=== PATIENT | female | born 1980 | race Caucasian/White ===

== ENCOUNTER 2021-06-29 14:45 | Emergency (ER) | payer SELFPAY ==
[2021-06-29 15:34] VITALS: BP 150/92
[2021-06-29 16:39] LABS: Alanine Aminotransferase 19 units/L (7-56); Albumin 4.8 g/dL (3.9-5); Blood Urea Nitrogen 10 mg/dL (7-17); Calcium 9.8 mg/dL (8.4-10.2); Hemolysis Index 3
[2021-06-29 16:40] LABS: BUN/Creatinine Ratio 14
[2021-06-29 16:43] LABS: Basophils % (Auto) 0.7 % (0.0-1.8); Eosinophils # (Auto) 0.1 K/mm3 (0.0-0.4); Eosinophils % (Auto) 1.3 % (0.0-4.3); Hematocrit 37.9 % (30.3-42.9); Hemoglobin 12.5 gm/dl (10.1-14.3); Lymphocytes # (Auto) 1.8 K/mm3 (1.2-5.4); Lymphocytes % (Auto) 33.9 % (13.4-35.0); Mean Corpuscular HGB Conc 33 % (30-34); Mean Corpuscular Volume 86 fl (79-97); Monocytes # (Auto) 0.3 K/mm3 (0.0-0.8); Monocytes % (Auto) 4.7 % (0.0-7.3); Red Blood Count 4.43 M/mm3 (3.65-5.03); Red Cell Distribution Width 14.2 % (13.2-15.2)
[2021-06-29] MEDS ORDERED: ONDANSETRON 4 MG ODT TAB PO ONE (16:46)
[2021-06-29] MEDS ORDERED: MECLIZINE 25 MG TAB PO ONE (16:46)
--- NOTE | 2021-06-29 16:46 | Emergency Department Report ---
ED Dizziness HPI - General Chief Complaint: Dizziness Stated Complaint: DIZZY/WEAKNESS Source: patient Mode of arrival: Stretcher Limitations: Other - History of Present Illness Initial Comments: Patient is a 40-year-old female she comes to the emergency room after experiencing dizziness today. She states that she has had this in the past. It is worse with movement. She denies nausea vomiting or diarrhea. She denies fever or chills. Denies chest pain or cough. Denies palpitations. Patient denies any trauma. Patient is ambulatory to the ER. She has normal vital signs. She is otherwise healthy. Complaint: dizziness Timing: sudden onset Description: "room spinning" History of Same: Yes History of Trauma: No Severity: mild Improves With: remaining still Worsens With: movement Associated Symptoms: denies other symptoms. denies: ataxia, chest pain, confusion, cough, diaphoresis, fever/chills, loss of appetite, malaise, rash, seizure, shortness of breath, syncope, weakness - Related Data Previous Rx's Medication Instructions Recorded Last Taken Type Cetirizine HCl [ZyrTEC] 10 mg PO DAILY #30 capsule 06/29/21 Unknown Rx Ibuprofen [Motrin] 800 mg PO Q8HR PRN #30 tablet 06/29/21 Unknown Rx Meclizine [Antivert] 12.5 mg PO Q8H PRN #20 06/29/21 Unknown Rx Allergies Allergy/AdvReac Type Severity Reaction Status Date / Time No Known Allergies Allergy Verified 01/12/16 17:05 ED Review of Systems ROS: Stated complaint: DIZZY/WEAKNESS Other details as noted in HPI Comment: All other systems reviewed and negative ED Past Medical Hx - Past Medical History Previous Medical History?: No Hx Hypertension: No Hx Congestive Heart Failure: No Hx Diabetes: No Hx Deep Vein Thrombosis: No Hx Renal Disease: No Hx Sickle Cell Disease: No Hx Seizures: No Hx Asthma: No Hx COPD: No Hx HIV: No - Surgical History Past Surgical History?: Yes - Family History Family history: no significant - Social History Smoking Status: Never Smoker Substance Use Type: Alcohol - Medications Home Medications: Home Medications Medication Instructions Recorded Confirmed Last Taken Type Cetirizine HCl [ZyrTEC] 10 mg PO DAILY #30 capsule 06/29/21 Unknown Rx Ibuprofen [Motrin] 800 mg PO Q8HR PRN #30 tablet 06/29/21 Unknown Rx Meclizine [Antivert] 12.5 mg PO Q8H PRN #20 06/29/21 Unknown Rx ED Physical Exam - General Limitations: Other General appearance: alert, in no apparent distress - Head Head exam: Present: atraumatic, normocephalic, other - Eye Eye exam: Present: normal appearance - ENT ENT exam: Present: mucous membranes moist - Neck Neck exam: Present: normal inspection - Respiratory Respiratory exam: Present: normal lung sounds bilaterally. Absent: respiratory distress - Cardiovascular Cardiovascular Exam: Present: regular rate, normal rhythm. Absent: systolic murmur, diastolic murmur, rubs, gallop - GI/Abdominal GI/Abdominal exam: Present: soft, normal bowel sounds - Extremities Exam Extremities exam: Present: normal inspection - Back Exam Back exam: Present: normal inspection - Neurological Exam Neurological exam: Present: alert, oriented X3 - Psychiatric Psychiatric exam: Present: normal affect, normal mood - Skin Skin exam: Present: warm, dry, intact, normal color. Absent: rash ED Course Vital Signs 06/29/21 15:33 Temperature 98.4 F Pulse Rate 82 Respiratory 16 Rate Blood Pressure 150/92 [Left] O2 Sat by Pulse 98 Oximetry ED Medical Decision Making - Lab Data Result diagrams: 06/29/21 15:54 06/29/21 15:54 - Medical Decision Making Vital Signs 06/29/21 15:33 Temperature 98.4 F Pulse Rate 82 Respiratory 16 Rate Blood Pressure 150/92 [Left] O2 Sat by Pulse 98 Oximetry Labs 06/29/21 06/29/21 15:54 15:54 WBC 5.4 RBC 4.43 Hgb 12.5 Hct 37.9 MCV 86 MCH 28 MCHC 33 RDW 14.2 Lymph % (Auto) 33.9 Granite % (Auto) 4.7 Eos % (Auto) 1.3 Baso % (Auto) 0.7 Lymph # (Auto) 1.8 Granite # (Auto) 0.3 Eos # (Auto) 0.1 Baso # (Auto) 0.0 Seg Neutrophils % 59.4 Seg Neutrophils # 3.2 Sodium 135 L Potassium 3.8 Chloride 100.1 Carbon Dioxide 23 Anion Gap 16 BUN 10 Creatinine 0.7 Estimated GFR > 60 BUN/Creatinine Ratio 14 Glucose 102 H Calcium 9.8 Total Bilirubin 0.20 AST 16 ALT 19 Alkaline Phosphatase 48 Total Protein 6.9 Albumin 4.8 Albumin/Globulin Ratio 2.3 Vital signs normal. Labs noted. I am able to replicate the vertigo with rapid head movement. Patient gets dizzy with right side or left side rapid head turns. Patient states that she has had this in the past and was told that she had vertigo by a nursing friend of hers. She has never had to be treated. Patient is otherwise healthy. I have given the patient Zyrtec Antivert and Motrin. This completely relieved her symptoms. Patient being discharged home with discharge plan of care including diet, medications, activity and follow-up. Patient verbalizes understanding of plan of care - Differential Diagnosis Vertigo versus arrhythmia versus Critical care attestation.: If time is entered above; I have spent that time in minutes in the direct care of this critically ill patient, excluding procedure time. ED Disposition Clinical Impression: Vertigo Disposition: 01 HOME / SELF CARE / HOMELESS Is pt being admited?: No Does the pt Need Aspirin: No Condition: Stable Instructions: Vertigo, [id number] Additional Instructions: Medications as ordered today. Stay well-hydrated with water. Follow-up with PCP next week to make sure you are getting better. Avoid alcohol Prescriptions: Meclizine [Antivert] 12.5 mg PO Q8H PRN #20 PRN Reason: Vertigo Ibuprofen [Motrin] 800 mg PO Q8HR PRN #30 tablet PRN Reason: Pain, Moderate (4-6) Cetirizine HCl [ZyrTEC] 10 mg PO DAILY #30 capsule Referrals: GAGE PEREZ MD [Staff Physician] - 3-5 Days Forms: Work/School Release Form(ED) Time of Disposition: 17:12
[2021-06-29] MEDS ORDERED: CETIRIZINE 10 MG TAB PO ONE (16:47)
[2021-06-29 17:36] LABS: Platelet Count 360 K/mm3 (140-440)
--- NOTE | 2021-07-01 10:38 | Electrocardiograph Report ---
[facility] Test Date: 2021-06-29 Test Time: 15:47:15 Pat Name: LARRY LEMUS Department: Room: Gender: F [employer]: HAY : 1980 Requested By: YASMIN FERGUSON Order Number: [id number] Reading MD: Ezekiel Johnson Measurements Intervals [place] Rate: 68 P: 57 IA: 158 QRS: 52 QRSD: 89 T: 40 QT: 410 QTc: 438 Interpretive Statements Sinus rhythm No previous ECG available for comparison Electronically Signed On 07-01-2021 10:37:47 EDT by Ezekiel Johnson
== END 2021-06-29 17:46 | disposition home or self-care (01) ==
LOC: ED 14:45
DX: R42 Dizziness and giddiness (principal); Z72.89 Other problems related to lifestyle; Z79.899 Other long term (current) drug therapy
CPT/HCPCS: 36415; 80053; 85025; 93005; 99283; 99284; J3490; Q0162